=== PATIENT | female | born 1955 | race Asian ===

== ENCOUNTER 2018-08-16 13:24 | Outpatient (CLI) | payer OTHER | END 2018-08-16 13:25 | disposition home or self-care (01) | LOC: BICMAMMO 13:24 | PROVIDERS: ATTEND Nurse Practitioner Family | DX: Z12.31 Encounter for screening mammogram for malignant neoplasm of breast (principal); M85.89 Other specified disorders of bone density and structure, multiple sites; Z87.39 Personal history of other diseases of the musculoskeletal system and connective tissue | CPT/HCPCS: 77063; 77067; 77080 ==

== ENCOUNTER 2020-05-23 08:24 | Outpatient (CLI) | payer OTHER ==
--- NOTE | 2020-05-23 09:13 | MMO ---
Bilateral MAMMO Bilat Screen [facility]. CLINICAL HISTORY: Patient is 64 years old and is seen for screening. The patient has no family history of breast cancer. The patient has no personal history of cancer. The patient has a history of left Excisional Biopsy in - benign. VIEWS: The views performed were: bilateral craniocaudal with tomosynthesis; bilateral mediolateral oblique with tomosynthesis; and bilateral exaggerated craniocaudal. FILMS COMPARED: The present examination has been compared to prior imaging studies performed at [facility] on 05/02/2015 and 08/16/2018, and at [facility] on 01/07/2012 and 01/16/2014. This study has been interpreted with the assistance of computer-aided detection. MAMMOGRAM FINDINGS: The breasts are heterogeneously dense, which could obscure a lesion on mammography. There are no suspicious masses, suspicious calcifications, or new areas of architectural distortion. IMPRESSION: THERE IS NO MAMMOGRAPHIC EVIDENCE OF MALIGNANCY. A ROUTINE FOLLOW-UP MAMMOGRAM IN 1 YEAR IS RECOMMENDED. THE RESULTS OF THIS EXAM WERE SENT TO THE PATIENT. ACR BI-RADS Category 1 - Negative MAMMOGRAPHY NOTE: 1. A negative mammogram report should not delay a biopsy if a dominant of clinically suspicious mass is present. 2. Approximately 10% to 15% of breast cancers are not detected by mammography. 3. Adenosis and dense breasts may obscure an underlying neoplasm. Reported by: PERICO NEWELL MD Electonically Signed: [id number]
--- NOTE | 2020-05-23 09:14 | BD ---
EXAM: Bone densitometry using DEXA HISTORY: 64 yo female. Screening for postmenopausal osteoporosis FINDINGS: L1--bone mineral density 0.940 g/sq cm; T score -0.5 ; Z score 1.0 L2--bone mineral density 0.986 g/sq cm; T score -0.4 ; Z score 1.3 L3--bone mineral density 1.090 g/sq cm; T score 0.1 ; Z score 1.8 L4--bone mineral density 1.121 g/sq cm; T score 0.5 ; Z score 2.4 Total L1-L4--bone mineral density 1.040 g/sq cm; T score -0.1 ; Z score 1.6 Left femoral neck--bone mineral density0.662; T score -1.7 ; Z score -0.2 Total proximal left femur--bone mineral density 0.829; T score -0.9 ; Z score 0.2 There has been an interval improvement of 8.2% in the BMD of the lumbar spine and a reduction of 3% in the BMD of the proximal femur since the previous study of 04/24/2014. The 10 year fracture risk for a major osteoporotic fracture is 4.4% and for a hip fracture is 0.5%. IMPRESSION: Osteopenia
== END 2020-05-23 08:25 | disposition home or self-care (01) ==
LOC: BICMAMMO 08:24
PROVIDERS: ATTEND Nurse Practitioner Family
DX: Z12.31 Encounter for screening mammogram for malignant neoplasm of breast (principal); M85.89 Other specified disorders of bone density and structure, multiple sites; M85.852 Other specified disorders of bone density and structure, left thigh; Z91.89 Other specified personal risk factors, not elsewhere classified
CPT/HCPCS: 77063; 77067; 77080

== ENCOUNTER 2022-11-16 07:54 | Outpatient (CLI) | payer BC | END 2022-11-16 07:55 | disposition home or self-care (01) | LOC: BICMAMMO 07:54 | PROVIDERS: ATTEND Nurse Practitioner Family | DX: Z12.31 Encounter for screening mammogram for malignant neoplasm of breast (principal); M85.89 Other specified disorders of bone density and structure, multiple sites; Z91.89 Other specified personal risk factors, not elsewhere classified | CPT/HCPCS: 77063; 77067; 77080 ==

== ENCOUNTER 2025-11-13 13:26 | Outpatient (CLI) | payer MEDICARE | END 2025-11-13 13:27 | disposition home or self-care (01) | LOC: BICMAMMO 13:26 | DX: Z12.31 Encounter for screening mammogram for malignant neoplasm of breast (principal); Z13.820 Encounter for screening for osteoporosis; R92.333 Mammographic heterogeneous density, bilateral breasts; M85.851 Other specified disorders of bone density and structure, right thigh; M85.852 Other specified disorders of bone density and structure, left thigh; Z78.0 Asymptomatic menopausal state; Z91.89 Other specified personal risk factors, not elsewhere classified | CPT/HCPCS: 77063; 77067; 77080 ==